=== PATIENT | male | born 1955 | race Caucasian/White ===

== ENCOUNTER 2018-12-18 10:20 | Emergency (ER) | payer OTHER ==
[~2018-12-18] VITALS: Ht 185.4 cm; Wt 95.2 kg
[~2018-12-18 10:20] MED LIST: ASPI81CH PO; CRUTCH3 USE; HYDCHL12.5; IBUP800 PO; LISI10; MELO7.5 PO; NAPR550 PO; Norco 5-325 Ta1 EACH PO; OLOP.1OPSO BOTHEYES; OMEPRAZOLE MAGN20 MG PO; OXYACE5T PO
[2018-12-18] MEDS ORDERED: LISI20 PO (10:41)
[2018-12-18] MEDS ORDERED: Lovastatin20 MG PO (10:42)
[2018-12-18] MEDS ORDERED: Bisoprolol Fuma10 MG PO (10:42)
[2018-12-18] MEDS ORDERED: ZESTORETIC 20-251 EA PO (10:43)
[2018-12-18] MEDS ORDERED: Prozac40 MG PO (10:44)
[2018-12-18] MEDS ORDERED: DICLOFENAC SOD100 G1 TOP (10:46)
[2018-12-18] MEDS ORDERED: HYDR1TAB94 PO (11:20)
== END 2018-12-18 11:29 | disposition home or self-care (01) ==
LOC: ER 10:20
DX: S43.102A Unspecified dislocation of left acromioclavicular joint, initial encounter (principal); I10 Essential (primary) hypertension; Z79.899 Other long term (current) drug therapy; Z87.891 Personal history of nicotine dependence; W01.0XXA Fall on same level from slipping, tripping and stumbling without subsequent striking against object, initial encounter
CPT/HCPCS: 73030; 99283-25

== ENCOUNTER 2019-05-04 08:30 | Emergency (ER) | payer OTHER ==
[~2019-05-04] VITALS: Ht 182.9 cm; Wt 105.2 kg
[~2019-05-04 08:30] MED LIST changes: +Bisoprolol Fuma10 MG PO; +DICLOFENAC SOD100 G1 TOP; +HYDR1TAB94 PO; +LISI20 PO; +Lovastatin20 MG PO; +Prozac40 MG PO; +ZESTORETIC 20-251 EA PO
[2019-05-04] MEDS ORDERED: Prednisone20 MG PO (11:23)
[2019-05-04] MEDS ORDERED: DEXT30SU PO (11:23)
== END 2019-05-04 11:29 | disposition home or self-care (01) ==
LOC: ER 08:30
DX: R07.81 Pleurodynia (principal); R05 Cough; Z79.899 Other long term (current) drug therapy; Z79.82 Long term (current) use of aspirin; Z79.52 Long term (current) use of systemic steroids; I10 Essential (primary) hypertension; J44.9 Chronic obstructive pulmonary disease, unspecified; K21.9 Gastro-esophageal reflux disease without esophagitis; Z87.891 Personal history of nicotine dependence; Z77.22 Contact with and (suspected) exposure to environmental tobacco smoke (acute) (chronic)
CPT/HCPCS: 71046; 99283-25

== ENCOUNTER 2019-07-06 06:17 | Day surgery (SDC) | payer OTHER ==
[~2019-07-06] VITALS: Ht 182.9 cm; Wt 105.7 kg
[~2019-07-06 06:17] MED LIST changes: +DEXT30SU PO; +Prednisone20 MG PO
--- NOTE | 2019-07-06 10:34 | NUR ---
07/06/19 1034 Aishwarya Whelan ENCOURAGING THE PT TO TAKE DEEP BREATHS AND TO COUGH, HE IS STILL ON O2 10L VIA FACEMASK. HE IS VERY TALKATIVE. HE WAS MEDICATED FOR 4/10 PAIN (SEE VS RECORD).
--- NOTE | 2019-07-06 11:39 | NUR ---
07/06/19 1139 Aishwarya Whelan LATE ENTRY, VSS, PT READY TO GO, PAIN LEVEL 3/10, DISCHARGE INSTRUCTIONS DONE AND ALL QUESTIONS ANSWERED. INCENTIVE SPIROMETRY DEMO AND TEACH BACK IS DONE.
== END 2019-07-06 11:41 | disposition home or self-care (01) ==
LOC: ORSCSDS 06:17
PROVIDERS: Orthopaedic Surgery
PROC: 0PBB0ZZ Excision of Left Clavicle, Open Approach (ICD-10-PCS; principal; 2019-07-06 07:30)
PROC: 0RQK0ZZ Repair Left Shoulder Joint, Open Approach (ICD-10-PCS; principal; 2019-07-06 07:30)
DX: S43.102A Unspecified dislocation of left acromioclavicular joint, initial encounter (principal); I10 Essential (primary) hypertension; K21.9 Gastro-esophageal reflux disease without esophagitis; E78.5 Hyperlipidemia, unspecified; Z79.899 Other long term (current) drug therapy; Z79.82 Long term (current) use of aspirin
CPT/HCPCS: C1713; C1762; J0171; J0690; J0735; J1100; J1885; J2250; J2370; J2405; J2704; J2710; J2795; J3010; J7120

== ENCOUNTER 2020-09-22 07:49 | Day surgery (SDC) | payer OTHER ==
[~2020-09-22] VITALS: Ht 182.9 cm; Wt 101.2 kg
[~2020-09-22 07:49] MED LIST changes: -LISI20 PO
--- NOTE | 2020-09-22 08:24 | NUR ---
Ambulatory in Day Surgery History, Chart, Medications and Allergies reviewed before start of procedure.Pre-Op teaching done. Pt verbalizes understanding. Patient confirms NPO status and agrees with scheduled surgery.
--- NOTE | 2020-09-22 08:38 | NUR ---
09/22/20 0838 Venkata Maya History, Chart, Medications and Allergies reviewed before start of procedure.MONITOR INTACT WITH CONTINUOUS PULSE OXIMETRY AND INTERMITTENT BP.3-LEAD EKG REVIEWED WITH PHYSICIAN PRIOR TO START OF PROCEDURE.O2 VIA N/C INTACT THROUGHOUT SEDATION/PROCEDURE. PATIENT DETERMINED TO BE ASA APPROPRIATE FOR PROPOFOL SEDATION PRIOR TO START OF PROCEDURE BY DR. CASEY.
--- NOTE | 2020-09-22 09:53 | NUR ---
Patient States Post-Procedure ride home has been arranged. Discharge instructions reviewed with patient. Patient verbalizes understanding. Copy given to patient to take home. Discharged via wheelchair to private car for ride home.
--- NOTE | 2020-09-22 09:57 | NUR ---
PT RX FOR FLAGYL, CIPRO AND PEPCID CALLED INTO [facility]
== END 2020-09-22 09:44 | disposition home or self-care (01) ==
LOC: ORSCMMR 07:49 → ORD 08:30 → ORSCMMR 09:44
PROVIDERS: Internal Medicine Gastroenterology
PROC: 0DBM8ZX Excision of Descending Colon, Via Natural or Artificial Opening Endoscopic, Diagnostic (ICD-10-PCS; principal; 2020-09-22 08:30)
PROC: 0DBL8ZX Excision of Transverse Colon, Via Natural or Artificial Opening Endoscopic, Diagnostic (ICD-10-PCS; principal; 2020-09-22 08:30)
DX: R10.33 Periumbilical pain (principal); D12.3 Benign neoplasm of transverse colon; D12.4 Benign neoplasm of descending colon; K57.30 Diverticulosis of large intestine without perforation or abscess without bleeding; I10 Essential (primary) hypertension; K21.9 Gastro-esophageal reflux disease without esophagitis; Z79.899 Other long term (current) drug therapy
CPT/HCPCS: 88305; J2250; J2704; J7120

== ENCOUNTER 2020-11-18 17:31 | Inpatient (IN) | payer OTHER ==
[~2020-11-18] VITALS: Ht 182.9 cm; Wt 102.4 kg
[2020-11-18 18:02] LABS: BASOPHILS ABSOLUTE AUTO 0.04 K/mm3 (0.00-0.23); BASOPHILS PERCENT AUTO 0 % (0-2); EOSINOPHILS ABSOLUTE AUTO 0.01 K/mm3 (0.00-0.68); EOSINOPHILS PERCENT AUTO 0 % (0-6); Hematocrit 45.4 % (37.0-53.0); Hemoglobin 16.3 g/dL (13.5-17.5); IMMATURE GRAN ABSOLUTE AUTO 0.05 K/mm3 (0.00-0.10); IMMATURE GRAN PERCENT AUTO 0 % (0-1); LYMPHOCYTES ABSOLUTE AUTO 2.37 K/mm3 (0.84-5.20); LYMPHOCYTES PERCENT AUTO 15 % (21-46); MONOCYTES ABSOLUTE AUTO 1.16 K/mm3 (0.16-1.47); MONOCYTES PERCENT AUTO 7 % (4-13); Mean Corpuscular HGB 33.3 pg (26.0-34.0); Mean Corpuscular HGB Conc 35.9 g/dL (31.5-36.5); Mean Corpuscular Volume 93 fL (80-100); Mean Platelet Volume 9.8 fL (9.1-12.4); NEUTROPHILS ABSOLUTE AUTO 12.77 K/mm3 (1.96-9.15); NEUTROPHILS PERCENT AUTO 78 % (41-73); Platelet Count 208 K/mm3 (150-400); RDW Coefficient Variation 12.2 % (11.7-14.2); RDW Standard Deviation 41.7 fL (35.1-46.3); Red Blood Cell Count 4.89 M/mm3 (4.30-5.90)
[2020-11-18] MEDS ORDERED: NEOMYC-POLYM-DEX5 ML LEFTEYE (18:17)
[2020-11-18 18:28] LABS: Alanine Aminotransfer (ALT/SGP 118 U/L (12-78); Alk Phos 77 U/L (50-136); Anion Gap 8 mmol/L (6-16); Aspartate Aminotrans (AST/SGOT 64 U/L (12-37); Bilirubin, Total 0.8 mg/dL (0.1-1.0); Blood Urea Nitrogen 22 mg/dL (8-24); Bun/Creatinine Ratio 17.6 (12.0-20.0); CO2, Blood 24 mmol/L (21-32); Calcium, Blood 9.3 mg/dL (8.5-10.1); Chloride, Blood 103 mmol/L (98-108); Creatinine, Blood 1.25 mg/dL (0.60-1.20); Globulin, Blood 4.2 g/dL (2.2-4.0); Glomerular Filtration Rate >60 (60-); Glucose, Blood 163 mg/dL (70-99); Potassium, Blood 4.2 mmol/L (3.5-5.5); Sodium, Blood 135 mmol/L (136-145); Total Protein, Blood 8.2 g/dL (6.4-8.2)
[2020-11-18 19:42] LABS: International Normalized Ratio 1.02; Prothrombin Time Results 10.9 Sec (9.7-11.5)
[2020-11-18] MEDS ORDERED: DICL75ER PO (19:54)
[2020-11-18] MEDS ORDERED: LISI20 PO (20:27)
[2020-11-18] MEDS ORDERED: PEPCID40 MG PO (20:28)
--- NOTE | 2020-11-18 21:45 | NUR ---
ASSUMED CARE RECIEVED REPORT FROM FABIAN IN ED. PT CAME TO UNIT VIA STRETCHER ACCOMPANIED BY . PT AMBULATED FROM STRETCHER TO BATHROOM AND BACK TO BED. PT ON 2L NC WITH SATS OF 94%. DENIED SOB OR CHEST PAIN BUT REPORTED FEELING UNCOMFORTABLY HOT. WILL CONTINUE TO MONITOR.
--- NOTE | 2020-11-18 23:30 | NUR ---
CALLED DR WHITE REGARDING PT REQUESTING EVENING OMEPROPZOLE AND MELATONIN. TO PUT IN ORDERS.
[2020-11-19 03:09] LABS: BASOPHILS ABSOLUTE AUTO 0.01 K/mm3 (0.00-0.23); BASOPHILS PERCENT AUTO 0 % (0-2); EOSINOPHILS PERCENT AUTO 0 % (0-6); Hematocrit 40.7 % (37.0-53.0); Hemoglobin 14.4 g/dL (13.5-17.5); IMMATURE GRAN ABSOLUTE AUTO 0.04 K/mm3 (0.00-0.10); IMMATURE GRAN PERCENT AUTO 0 % (0-1); LYMPHOCYTES ABSOLUTE AUTO 1.73 K/mm3 (0.84-5.20); LYMPHOCYTES PERCENT AUTO 13 % (21-46); MONOCYTES ABSOLUTE AUTO 0.73 K/mm3 (0.16-1.47); MONOCYTES PERCENT AUTO 6 % (4-13); Mean Corpuscular HGB 33.6 pg (26.0-34.0); Mean Corpuscular HGB Conc 35.4 g/dL (31.5-36.5); Mean Corpuscular Volume 95 fL (80-100); Mean Platelet Volume 9.5 fL (9.1-12.4); NEUTROPHILS ABSOLUTE AUTO 10.79 K/mm3 (1.96-9.15); NEUTROPHILS PERCENT AUTO 81 % (41-73); Platelet Count 158 K/mm3 (150-400); RDW Coefficient Variation 12.5 % (11.7-14.2); RDW Standard Deviation 43.2 fL (35.1-46.3); Red Blood Cell Count 4.29 M/mm3 (4.30-5.90)
[2020-11-19 03:40] LABS: Anion Gap 6 mmol/L (6-16); Blood Urea Nitrogen 26 mg/dL (8-24); Bun/Creatinine Ratio 23.6 (12.0-20.0); CO2, Blood 27 mmol/L (21-32); Calcium, Blood 8.3 mg/dL (8.5-10.1); Chloride, Blood 101 mmol/L (98-108); Glomerular Filtration Rate >60 (60-); Glucose, Blood 174 mg/dL (70-99); Potassium, Blood 4.4 mmol/L (3.5-5.5); Sodium, Blood 134 mmol/L (136-145)
[2020-11-19 04:08] LABS: Troponin I 0.933 ng/mL (0.000-0.040)
--- NOTE | 2020-11-19 04:47 | NUR ---
CALLED DOCTOR REGARDING PT REQUESTING ANTACIDS FOR ESOPHAGEAL DISCOMFORT. ORDERED GI COCKTAIL PRN Q6.
--- NOTE | 2020-11-19 06:35 | NUR ---
SHIFT SUMMARY PT IS ALERT AND ORIENTED. VITALS ARE STABLE IN SINUS TACH AND ON 2L NC WITH SATS OF >92%. PT HAS REPORTED CHEST TIGHTNESS AND WAS MEDICATED PER ORDERED. PT ALSO HAS REPORTED "ACID REFLUX" DISCOMFORT AND AN ORDER WAS OBTAINED. USES URINAL AT BEDSIDE. HEPARIN IS INFUSING.
--- NOTE | 2020-11-19 12:38 | NUR ---
DR. PARTIDA FROM CARDIOLOGY WAS CONSULTED THIS MORNING AND BELIEVES THAT THE PATIENT MAY BE EXPERIENCING A PULMONARY EMBOLISM. PT LEFT AT APPROXIMATLEY 1238 FOR A CTA P.E. STUDY IN IMAGING. ADDITIONALLY AN ULTRASOUND FOR VENOUS DUPLEX WAS ORDERED.
--- NOTE | 2020-11-19 12:45 | NUR ---
ECHOCARDIOGRAM COMPLETED
--- NOTE | 2020-11-19 12:47 | NUR ---
ECHOCARDIOGRAM COMPLETED
--- NOTE | 2020-11-19 13:30 | NUR ---
PT RETURNED FROM IMAGING AT APPROXIMATELY 1320
[2020-11-19 16:00] LABS: Influenza A, PCR NEGATIVE (NEGATIVE); Influenza B, PCR NEGATIVE (NEGATIVE); Resp Syncytial Virus, PCR NEGATIVE (NEGATIVE); SARS-Cov-2 (COVID-19) PCR, MMC NEGATIVE (NEGATIVE)
--- NOTE | 2020-11-19 17:46 | NUR ---
COBRA TRANSFER TO [facility] PT WAS COBRA TRANSFERRED TO [facility] THIS EVENING, ACCEPTING PHYSCIKELLE RAMAN. PT WAS FOUND TO HAVE MULTIPLE PULMONARY EMBOLI DURING THE CTA P.E. STUDY THIS AFTERNOON. THE HEPARIN GTT WAS CONTINUED ON TRANSFER AT 16U/K/HR AND DOSING WEIGHT OF 87KG. PT LEFT WITH EMT GROUND TRANSPORT WITH LIGHTS AND SIRENS AT 2L O2 VIA NC, SLIGHT HYPERTENSION AND DENIED SOB, CHEST PAIN AND PRESSURE. PT WAS VERY EMOTIONAL UPON LEAVING VERBALIZING HOW MUCH HE MISSED HIS GRANDKIDS. REPORT WAS GIVEN TO MOLD MACHINE OPERATORBRIDGETTE IN [facility] AT APPROXIMATELY 1720. PT LEFT AT APPROXIMATELY 1735 ACCOMPANIED BY EMT AND ALL PERSONAL BELONGINGS WERE TAKEN BY FAMILY AND THE SIGNIFICANT OTHER.
== END 2020-11-19 17:38 | disposition short-term general hospital (02) | DRG 280 ==
LOC: ER 17:31 → PCU 21:21
PROVIDERS: Internal Medicine; Pharmacist; Physician Assistant; ADMIT Hospitalist
DX: I21.4 Non-ST elevation (NSTEMI) myocardial infarction (principal); I26.99 Other pulmonary embolism without acute cor pulmonale; N17.9 Acute kidney failure, unspecified; I10 Essential (primary) hypertension; R73.9 Hyperglycemia, unspecified; K44.9 Diaphragmatic hernia without obstruction or gangrene; Z87.891 Personal history of nicotine dependence
CPT/HCPCS: 0241U; 36415; 71045; 71260; 80048; 80053; 83036; 83735; 83880; 84484; 85025; 85610; 85730; 93005; 93010; 93306; 93970; 96361; 96365; 96375; 96376; 99285-25; A9270; C9113; J1644; J2270; J2405; J7120; Q9967

== ENCOUNTER 2021-03-01 06:10 | Emergency (ER) | payer OTHER ==
[~2021-03-01] VITALS: Ht 182.9 cm; Wt 103.9 kg
[~2021-03-01 06:10] MED LIST changes: +DICL75ER PO; +LISI20 PO; +NEOMYC-POLYM-DEX5 ML LEFTEYE; +PEPCID40 MG PO
[2021-03-01] MEDS ORDERED: TRAM50 PO (07:15)
[2021-03-01] MEDS ORDERED: Voltaren100 GM TOP (07:15)
== END 2021-03-01 07:36 | disposition home or self-care (01) ==
LOC: ER 06:10
DX: M25.561 Pain in right knee (principal); I10 Essential (primary) hypertension; J44.9 Chronic obstructive pulmonary disease, unspecified; Z79.899 Other long term (current) drug therapy; Z87.891 Personal history of nicotine dependence
CPT/HCPCS: 73562-RT; 99283-25; A9270

== ENCOUNTER → 2022-03-19 | Outpatient (CLI) | payer OTHER ==
[~2022-03-19] MED LIST changes: +TRAM50 PO; +Voltaren100 GM TOP
== END | disposition home or self-care (01) ==
LOC: LAB SHORT 14:42 → LAB 14:42
DX: L03.019 Cellulitis of unspecified finger (principal)
CPT/HCPCS: 87070; 87075; 87077; 87186; 87205

== ENCOUNTER 2023-06-09 01:04 | Emergency (ER) | payer OTHER ==
[~2023-06-09] VITALS: Ht 182.9 cm; Wt 103.9 kg
[2023-06-09 01:52] LABS: BASOPHILS ABSOLUTE AUTO 0.04 K/mm3 (0.00-0.23); BASOPHILS PERCENT AUTO 1 % (0-2); EOSINOPHILS PERCENT AUTO 3 % (0-6); Hematocrit 36.6 % (37.0-53.0); IMMATURE GRAN ABSOLUTE AUTO 0.02 K/mm3 (0.00-0.10); IMMATURE GRAN PERCENT AUTO 0 % (0-1); LYMPHOCYTES ABSOLUTE AUTO 2.26 K/mm3 (0.84-5.20); LYMPHOCYTES PERCENT AUTO 36 % (21-46); MONOCYTES ABSOLUTE AUTO 0.59 K/mm3 (0.16-1.47); MONOCYTES PERCENT AUTO 9 % (4-13); Mean Corpuscular HGB Conc 32.8 g/dL (31.5-36.5); Mean Corpuscular Volume 85 fL (80-100); Mean Platelet Volume 9.5 fL (9.1-12.4); NEUTROPHILS ABSOLUTE AUTO 3.14 K/mm3 (1.96-9.15); NEUTROPHILS PERCENT AUTO 50 % (41-73); Platelet Count 211 K/mm3 (150-400); RDW Coefficient Variation 21.5 % (11.7-14.2); RDW Standard Deviation 65.5 fL (35.1-46.3); Red Blood Cell Count 4.29 M/mm3 (4.30-5.90); White Blood Cell Count 6.25 K/mm3 (4.00-11.30)
[2023-06-09] MEDS ORDERED: XARELTO20 MG PO (02:04)
[2023-06-09 02:10] LABS: Albumin, Blood 3.8 g/dL (3.4-5.0); Albumin/Globulin Ratio 1.1 (0.8-1.8); Bilirubin, Total 0.3 mg/dL (0.1-1.0); Bun/Creatinine Ratio 17.2 (12.0-20.0); Creatinine, Blood 1.16 mg/dL (0.60-1.20); Globulin, Blood 3.5 g/dL (2.2-4.0); Potassium, Blood 4.2 mmol/L (3.5-5.5); Total Protein, Blood 7.3 g/dL (6.4-8.2)
[2023-06-09 03:45] VITALS: BP 158/74
== END 2023-06-09 04:55 | disposition home or self-care (01) ==
LOC: ER 01:04
PROVIDERS: Student in an Organized Health Care Education/Training Program
DX: R19.5 Other fecal abnormalities (principal); Z79.899 Other long term (current) drug therapy; I10 Essential (primary) hypertension; J44.9 Chronic obstructive pulmonary disease, unspecified; E78.00 Pure hypercholesterolemia, unspecified; Z87.891 Personal history of nicotine dependence
CPT/HCPCS: 80053; 85025; 86850; 86900; 86901; 99284

== ENCOUNTER 2024-05-22 07:27 | Day surgery (SDC) | payer OTHER ==
[~2024-05-22] VITALS: Ht 182.9 cm; Wt 102.6 kg
[~2024-05-22 07:27] MED LIST changes: +Lactated Ringer's 1,000 ML IV SCH; +TURMERIC500 M2; +UBID10 PO; +VITAMIN D310 MC4 PO; +Vitamin B Comple1 EA; +XARELTO20 MG PO
[2024-05-22 08:03] VITALS: BP 144/87
--- NOTE | 2024-05-22 08:10 | NUR ---
History, Chart, Medications and Allergies reviewed before start of procedure. Lungs clear T/O to Auscultation. Patient confirms NPO status and agrees with scheduled surgery. Patient states colon prep results clear. Patient States Post-Procedure ride home has been arranged.
--- NOTE | 2024-05-22 09:18 | NUR ---
05/22/24 0918 Alena Pro WITH SYDNEE KARIMI; SEE ANESTHESIA RECORDS.
[2024-05-22] MEDS ORDERED: propofoL 60 ML IV ONE (09:30)
[2024-05-22 10:21] VITALS: BP 113/78
--- NOTE | 2024-05-22 10:21 | NUR ---
PT TO DAY SURGERY STEP DOWN FROM EGD AND COLONOSCOPY; BEDSIDE REPORT RECEIVED. PT IS AWAKE, ALERT AND ORIENTED; ABLE TO MOVE SELF IN BED. NO COMPLAINTS
[2024-05-22 10:33] VITALS: BP 94/81
[2024-05-22 10:44] VITALS: BP 122/85
--- NOTE | 2024-05-22 11:00 | NUR ---
Discharge instructions reviewed with patient. Patient verbalizes understanding. Copy given to patient to take home. Pt to restart xarelto tomorrow. Patient States Post-Procedure ride home has been arranged. Discharged via wheelchair to private car for ride home.
== END 2024-05-22 10:55 | disposition home or self-care (01) ==
LOC: ORSCMMR 07:27 → ORD 09:15 → ORSCMMR 10:15 → ORD 10:15 → ORSCMMR 10:55
PROVIDERS: Surgery
PROC: 0DBH8ZX Excision of Cecum, Via Natural or Artificial Opening Endoscopic, Diagnostic (ICD-10-PCS; principal; 2024-05-22 09:15)
PROC: 0DB78ZX Excision of Stomach, Pylorus, Via Natural or Artificial Opening Endoscopic, Diagnostic (ICD-10-PCS; principal; 2024-05-22 09:15)
DX: D50.9 Iron deficiency anemia, unspecified (principal); K21.9 Gastro-esophageal reflux disease without esophagitis; K29.70 Gastritis, unspecified, without bleeding; K31.7 Polyp of stomach and duodenum; D12.4 Benign neoplasm of descending colon; E78.5 Hyperlipidemia, unspecified; I10 Essential (primary) hypertension; F33.9 Major depressive disorder, recurrent, unspecified; I25.2 Old myocardial infarction; N17.9 Acute kidney failure, unspecified; Z79.899 Other long term (current) drug therapy; Z79.01 Long term (current) use of anticoagulants
CPT/HCPCS: 88305; 88341; 88342; J2704; J7120